=== PATIENT | female | born 1985 | race Caucasian/White ===

== ENCOUNTER 2016-04-09 20:27 | Emergency (ER) | payer SELFPAY ==
[~2016-04-09] VITALS: Ht 157.5 cm; Wt 63.5 kg
[~2016-04-09 20:27] MED LIST: LASIX40 MG PO; LEVAQUIN500 MG PO; LOPRESSOR50 MG PO; NORVASC10 MG PO; VASOTEC20 MG PO
[2016-04-09 20:41] VITALS: BP 157/98
--- NOTE | 2016-04-09 21:08 | NUR ---
PT C/O PT EAR PAIN WITH COUGH, CONGESTION, FEVER, CHILLS, HEADACHE AND SEVERE LT EAR PAIN X 1 WEEK. PT STATES MEDICAL HX OF CHF, AND HTN. PT STATES SHE HASNT BEEN TAKING HER MEDICATIONS DUE TO RUNNING OUT. PT HAS BEEN TAKING ASA FOR PAIN. . PT DENIES N/V/D; SKIN IS PINK/WARM/DRY; AAOX4 WITH EVEN AND STEADY GAIT; LUNGS CLEAR BL; HR EVEN AND REGULAR; PT DENIES ANY FEVER, CP,or SOB AT THIS TIME; PATIENT STATES PAIN OF 10/10 AT THIS TIME; VSS; PATIENT POSITIONED FOR COMFORT; HOB ELEVATED; BEDRAILS UP X2; BED DOWN. ER MD MADE AWARE OF PT STATUS.
[2016-04-09 21:24] VITALS: BP 146/96
--- NOTE | 2016-04-09 21:26 | NUR ---
Patient discharged with v/s stable. Written and verbal after care instructions given and explained. Patient alert, oriented and verbalized understanding of instructions. Ambulatory with steady gait. All questions addressed prior to discharge. ID band removed. Patient advised to follow up with PMD. Rx of amoxicillin, motrin, dextromethorphan given. Patient educated on indication of medication including possible reaction and side effects. Opportunity to ask questions provided and answered.
== END 2016-04-09 21:24 | disposition home or self-care (01) ==
LOC: MED 20:32
DX: H66.92 Otitis media, unspecified, left ear (principal); J20.9 Acute bronchitis, unspecified; I10 Essential (primary) hypertension